=== PATIENT | male | born 1995 | race Caucasian/White ===

== ENCOUNTER 2019-11-26 16:44 | Emergency (ER) | payer OTHER ==
[2019-11-26] MEDS ORDERED: LIDOCAINE 1% INJ-PF (10 MG/ML) 30 ML SDV INJ ONE (17:40)
--- NOTE | 2019-11-26 17:41 | ER Document Report ---
HPI - HPI Time Seen by Provider: 11/26/19 17:36 Pain Level: 2 Notes: Otherwise healthy 24-year-old male presents the emergency department chief complaint of laceration. Patient is a laceration to his right [place] area. He states he was working on a lawnmower when the trailer of the lawnmower fell and hit his leg. He is able to ambulate without any difficulty. He reports his tetanus is up-to-date. He declines the need for any pain medication at this time. - ROS Systems Reviewed and Negative: Yes All other systems reviewed and negative - MUSCULOSKELETAL Musculoskeletal: REPORTS: Extremity pain - DERM Skin Problems: Laceration Past Medical History - General Information source: Patient - Social History Smoking Status: Current Every Day Smoker Chew tobacco use (# tins/day): No Frequency of alcohol use: None Drug Abuse: Marijuana Family History: Reviewed & Not Pertinent - Medical History Medical History: Negative Surgical Hx: Negative - Immunizations Immunizations up to date: Yes Vertical Provider Document - CONSTITUTIONAL Notes: PHYSICAL EXAMINATION: GENERAL: Well-appearing, well-nourished and in no acute distress. HEAD: Atraumatic, normocephalic. EYES: Pupils equal round extraocular movements intact, conjunctiva are normal. ENT: Nares patent NECK: Normal range of motion LUNGS: No respiratory distress Musculoskeletal: Normal range of motion NEUROLOGICAL: Normal speech, normal gait. PSYCH: Normal mood, normal affect. SKIN: 3 cm laceration semicircular nature, approximates well, deep, no active bleeding noted. Course - Re-evaluation Re-evalutation: Patient appears well, nontoxic. He is ambulating without difficulty. He does have a laceration to his right [place] area. This was repaired under sterile technique, patient tolerated well. Patient understands the need for suture removal. His tetanus was updated. No indication at this time for antibiotics. The wound was irrigated thoroughly with Shur-Clens and saline. - Vital Signs Vital signs: Temp Pulse Resp BP Pulse Ox 99.1 F 118 H 14 157/87 H 96 11/26/19 16:49 11/26/19 16:49 11/26/19 16:49 11/26/19 16:49 11/26/19 16:49 Procedures - Laceration/Wound Repair Right lower extremity Wound length (cm): 3 Wound's Depth, Shape: Irregular Laceration pre-procedure: Sterile PPE donned Anesthetic type: 1% Lidocaine Wound explored: Clean Irrigated w/ Saline (mLs): 250 Suture Size/Type: 5:0, 4:0 Number of Sutures: 6 Post-procedure wound care: Sterile dressing applied Post-procedure NV exam normal: Yes Discharge - Discharge Clinical Impression: Laceration Condition: Stable Disposition: HOME, SELF-CARE Additional Instructions: Laceration Care Your laceration has been sutured to keep the skin edges aligned during healing. The time of suture removal depends on the nature and location of your cut. Please follow the care instructions the doctor has outlined for you and return for further care, according to the schedule you've been given. Keep the wound and dressing clean. Unless you were told otherwise, you may shower daily, blotting the wound dry with a clean, unused towel. At other times, If the dressing gets wet or blood soaked, remove it and blot the wound dry, then reapply a new dressing. Unless you were instructed otherwise, dressings should be changed at least daily. If any signs of infection occur (swelling, redness, increasing tenderness, red streaks, tender lumps in the armpit or groin above the laceration, or fever), see the doctor immediately. Please return to the emergency department or your primary care provider in 10 days for suture removal. Please return earlier if you develop any signs of infection such as increased redness, swelling, foul-smelling drainage or fever.
[2019-11-26] MEDS ORDERED: DIPH/PERTUSS(ACELL)/TETANUS VAC/PF 0.5 ML SYR (>=10YO) IM ONE (18:13)
[2019-11-26 19:06] VITALS: BP 147/81
== END 2019-11-26 19:01 | disposition home or self-care (01) ==
LOC: ER 16:44
DX: S81.811A Laceration without foreign body, right lower leg, initial encounter (principal); W20.8XXA Other cause of strike by thrown, projected or falling object, initial encounter; Y93.89 Activity, other specified; F17.200 Nicotine dependence, unspecified, uncomplicated; F12.10 Cannabis abuse, uncomplicated; Z23 Encounter for immunization
CPT/HCPCS: 12002; 99282; 90471; 90715; J3490